=== PATIENT | female | born 1970 | race African-American/Black ===

== ENCOUNTER 2018-02-19 20:14 | Emergency (ER) | payer OTHER ==
[~2018-02-19] VITALS: Ht 160 cm; Wt 83.0 kg
[2018-02-19] MEDS ORDERED: IBUPROFEN 800800 M1 PO (20:27)
[2018-02-19] MEDS ORDERED: NABUMETONE 750750 M1 PO (21:23)
[2018-02-19] MEDS ORDERED: ZANAFLEX4 MG PO (21:23)
[2018-02-19 22:04] VITALS: BP 108/57
== END 2018-02-19 22:06 | disposition home or self-care (01) ==
LOC: M.ERS 20:14
DX: S16.1XXA Strain of muscle, fascia and tendon at neck level, initial encounter (principal); S29.012A Strain of muscle and tendon of back wall of thorax, initial encounter; V89.2XXA Person injured in unspecified motor-vehicle accident, traffic, initial encounter; Y92.410 Unspecified street and highway as the place of occurrence of the external cause; Y93.89 Activity, other specified; Y99.8 Other external cause status

== ENCOUNTER 2018-03-11 22:43 | Emergency (ER) | payer OTHER ==
[~2018-03-11] VITALS: Ht 160 cm; Wt 77.1 kg
[~2018-03-11 22:43] MED LIST: IBUPROFEN 800800 M1 PO; NABUMETONE 750750 M1 PO; ZANAFLEX4 MG PO
[2018-03-11] MEDS ORDERED: CYCLOBENZAPRINE5 MG (22:45)
[2018-03-11] MEDS ORDERED: MAXALT MLT ODT10 M1 (22:46)
[2018-03-12] MEDS ORDERED: BUTALB-APAP-CA1 EACH PO (00:28)
[2018-03-12 00:47] VITALS: BP 131/77
== END 2018-03-12 00:47 | disposition home or self-care (01) ==
LOC: M.ERS 22:43
DX: G43.909 Migraine, unspecified, not intractable, without status migrainosus (principal)